=== PATIENT | male | born 1955 | race Caucasian/White ===

== ENCOUNTER 2018-04-27 07:29 | Day surgery (SDC) | payer BC ==
[2018-04-27] MEDS ORDERED: LIDOCAINE 4% SOLUTION 50 ML BTL (09:27)
[2018-04-27] MEDS ORDERED: MIDAZOLAM 1 MG/ML 2 ML INJ ×2 (10:02)
[2018-04-27] MEDS ORDERED: FENTAnyl 50 MCG/ML VIAL (10:03)
== END 2018-04-27 11:51 | disposition home or self-care (01) ==
LOC: GIL 07:29
DX: K57.90 Diverticulosis of intestine, part unspecified, without perforation or abscess without bleeding (principal); K64.4 Residual hemorrhoidal skin tags; K64.8 Other hemorrhoids; K29.70 Gastritis, unspecified, without bleeding
CPT/HCPCS: 43239; 88305; 88312

== ENCOUNTER 2018-12-12 22:29 | Emergency (ER) | payer BC ==
[2018-12-12] MEDS: IBUPROFEN 600 MG TAB PO (22:50)
== END 2018-12-12 23:11 | disposition home or self-care (01) ==
LOC: E/R 22:29
DX: R05 Cough (principal)
CPT/HCPCS: 71045; 99283-25